=== PATIENT | female | born 1970 | race Caucasian/White ===

== ENCOUNTER → 2017-01-10 | Outpatient (CLI) | payer BC | LOC: COL.RAD 12:48 | DX: K57.32 Diverticulitis of large intestine without perforation or abscess without bleeding (principal) ==

== ENCOUNTER 2017-07-14 14:59 | Inpatient (IN) | payer BC ==
[~2017-07-14] VITALS: Ht 185.4 cm; Wt 130.0 kg
[2017-07-22] MEDS ORDERED: CYMBALTA 60MG60 MG PO (16:05)
[2017-07-22] MEDS ORDERED: ZOFRAN 4MG T4 MG/TAB PO (16:06)
[2017-07-22] MEDS ORDERED: PRILOSEC 20MG20 MG PO (16:06)
[2017-07-23] VITALS (11 sets, daily range): BP systolic 99–147; BP diastolic 62–92; PULSE 92–98; TEMP 97.8–98.2
[2017-07-24 01:06] VITALS: BP 107/59; PULSE 99; TEMP 98.4
[2017-07-24 05:11] VITALS: BP 121/65; PULSE 89; TEMP 98.2
[2017-07-24 09:36] VITALS: BP 91/55; PULSE 83; TEMP 97.7
[2017-07-24 13:10] VITALS: BP 108/66; PULSE 83; TEMP 98
[2017-07-24 18:19] VITALS: BP 110/66; PULSE 86; TEMP 98.1
[2017-07-24 22:13] VITALS: BP 111/63; PULSE 94; TEMP 98.1
[2017-07-25 04:58] VITALS: BP 119/76; PULSE 81; TEMP 97.4
== END 2017-07-25 13:20 | disposition home or self-care (01) | DRG 331 ==
LOC: INPTSU 07-23 09:49 → SURG 07-23 09:49
PROVIDERS: Surgery
PROC: 0DJD8ZZ Inspection of Lower Intestinal Tract, Via Natural or Artificial Opening Endoscopic (ICD-10-PCS; 2017-07-23)
PROC: 8E0W4CZ Robotic Assisted Procedure of Trunk Region, Percutaneous Endoscopic Approach (ICD-10-PCS; 2017-07-23)
PROC: 0DBN4ZZ Excision of Sigmoid Colon, Percutaneous Endoscopic Approach (ICD-10-PCS; principal; 2017-07-23 14:30)
DX: K57.32 Diverticulitis of large intestine without perforation or abscess without bleeding (principal); K21.9 Gastro-esophageal reflux disease without esophagitis; F17.210 Nicotine dependence, cigarettes, uncomplicated
CPT/HCPCS: A4315; A9284; J0690; J1100; J1170; J1650; J1885; J2405; J2704; J2710; J3010; J7120

== ENCOUNTER → 2020-07-28 | Outpatient (CLI) | payer BC ==
[~2020-07-28] MED LIST: CYMBALTA 60MG60 MG PO; PRILOSEC 20MG20 MG PO; ZOFRAN 4MG T4 MG/TAB PO
== END ==
LOC: ZCOL.LAB 17:59
DX: R50.9 Fever, unspecified (principal); R05 Cough; R52 Pain, unspecified; Z20.828 Contact with and (suspected) exposure to other viral communicable diseases

== ENCOUNTER 2020-08-26 13:29 | Emergency (ER) | payer BC ==
[~2020-08-26] VITALS: Ht 185.4 cm; Wt 109.1 kg
[2020-08-26 13:30] VITALS: TEMP 98.3
[2020-08-26 15:43] VITALS: BP 128/99; PULSE 85
== END 2020-08-26 15:43 | disposition home or self-care (01) ==
LOC: COL.ER 13:29
DX: S00.93XA Contusion of unspecified part of head, initial encounter (principal); S93.401A Sprain of unspecified ligament of right ankle, initial encounter; Z88.6 Allergy status to analgesic agent; W01.10XA Fall on same level from slipping, tripping and stumbling with subsequent striking against unspecified object, initial encounter; Y92.89 Other specified places as the place of occurrence of the external cause
CPT/HCPCS: J3030

== ENCOUNTER → 2021-09-12 | Outpatient (CLI) | payer BC | LOC: COL.VAS 12:42 | DX: I65.23 Occlusion and stenosis of bilateral carotid arteries (principal); H53.9 Unspecified visual disturbance ==

== ENCOUNTER 2022-01-16 13:01 | Emergency (ER) | payer OTHER ==
[~2022-01-16] VITALS: Ht 185.4 cm; Wt 122.7 kg
[2022-01-16 13:16] VITALS: TEMP 97.7
[2022-01-16 14:20] LABS: COLLECTION METHOD CLEAN CATCH
[2022-01-16 14:27] LABS: BASO # 0.1 K/mm3 (0.0-0.2); BASO % 0.4 % (0.0-2.0); EOS # 0.2 K/mm3 (0.0-0.7); EOS % 0.9 % (0.0-4.0); GRAN # 14.1 K/mm3 (1.4-6.5); GRAN % 77.2 % (42.2-75.2); HEMATOCRIT 46.1 % (37.0-47.0); HEMOGLOBIN 15.8 g/dl (12.5-16.0); LYMPH # 2.9 K/mm3 (1.2-3.4); LYMPH % 15.7 % (20.0-51.0); MEAN CELL VOLUME 87 fl (80.0-100.0); MEAN CORPUSCULAR HEMOGLOBIN 30 pg (27-31); MEAN CORPUSCULAR HGB CONC 34 g/dl (33.0-37.0); MEAN PLATELET VOLUME 11.1 fl (7.4-10.4); MONO % 5.2 % (1.7-9.3); PLATELET COUNT 318 K/mm3 (130-400); RED BLOOD COUNT 5.28 M/mm3 (4.10-5.30)
[2022-01-16 14:49] LABS: ALBUMIN 3.4 gm/dL (3.5-5.0); BILIRUBIN,TOTAL 0.9 mg/dL (0.2-1.2); CALCIUM 8.6 mg/dL (8.4-10.2); CREATININE, serum 0.77 mg/dL (0.57-1.11); POTASSIUM 3.9 mmol/L (3.5-4.5); TOTAL PROTEIN 6.8 gm/dL (6.2-8.1)
[2022-01-16 15:17] LABS: MUCOUS Present (NOT PRESENT); PH 5 (5-8); URINE APPEARANCE Hazy (CLEAR/HAZY); URINE BACTERIA Rare /hpf (NONE SEEN); URINE BILIRUBIN Negative (NEGATIVE); URINE BLOOD 2+ (NEGATIVE); URINE COLOR Yellow (YELLOW); URINE GLUCOSE Negative (NEGATIVE); URINE KETONE Negative (NEGATIVE); URINE LEUKOCYTE ESTERASE Negative (NEGATIVE); URINE NITRATE Negative (NEGATIVE); URINE PROTEIN(semi-quant) Negative (NEGATIVE); URINE UROBILINOGEN Negative (NEGATIVE)
[2022-01-16] MEDS ORDERED: ZOFRAN ODT4 MG PO (16:29)
[2022-01-16 16:49] VITALS: BP 161/98; PULSE 84
== END 2022-01-16 16:49 | disposition home or self-care (01) ==
LOC: COL.ER 13:01
PROVIDERS: Physician Assistant
DX: K52.9 Noninfective gastroenteritis and colitis, unspecified (principal); G43.909 Migraine, unspecified, not intractable, without status migrainosus; D72.829 Elevated white blood cell count, unspecified; F17.210 Nicotine dependence, cigarettes, uncomplicated; Z88.6 Allergy status to analgesic agent
CPT/HCPCS: J1200; J2765; J3010; J7030; Q9967

== ENCOUNTER → 2022-08-21 | Outpatient (CLI) | payer OTHER ==
[~2022-08-21] MED LIST changes: +ZOFRAN ODT4 MG PO
== END ==
LOC: COL.RAD 08-19 09:31
DX: G43.109 Migraine with aura, not intractable, without status migrainosus (principal); R40.4 Transient alteration of awareness; R41.89 Other symptoms and signs involving cognitive functions and awareness; R90.89 Other abnormal findings on diagnostic imaging of central nervous system; R20.0 Anesthesia of skin; R20.2 Paresthesia of skin
CPT/HCPCS: A9575

== ENCOUNTER → 2024-03-10 | Outpatient (CLI) | payer OTHER ==
[~2024-03-10] MED LIST changes: +IMITREX50 MG PO
== END ==
LOC: MC.RAD 10:15
DX: Z12.31 Encounter for screening mammogram for malignant neoplasm of breast (principal); N63.20 Unspecified lump in the left breast, unspecified quadrant